=== PATIENT | male | born 1980 | race Caucasian/White ===

== ENCOUNTER 2022-01-11 09:30 | Emergency (ER) | payer OTHER, SELFPAY ==
--- NOTE | ~2022-01-11 | XR_ITS ---
EXAMINATION: XR HAND, LEFT CLINICAL INFORMATION: Puncture wound from screwdriver between first and second digit. COMPARISON: None TECHNIQUE: PA, lateral, and oblique views of the left hand. FINDINGS: Mild to moderate soft tissue swelling is seen in the region of the thenar eminence. A tiny osseous density seen along the proximal/radial aspect of the proximal phalanx of the first digit. The remainder the digits are intact. The carpal bones are normally aligned. The distal radius and ulna are intact. XR/XR hand LT min 3V IMPRESSION: 1. Mild to moderate soft tissue swelling in the thenar eminence without radiopaque foreign body in this region. 2. Tiny density along the proximal/radial aspect of the proximal phalanx of the first digit is nonspecific, but does not appear acute and could represent a radiopaque foreign body. Correlate with patient history and physical exam in this region.
[2022-01-11 09:43] VITALS: BP 157/94; PULSE 88; RESP 16; TEMP 35.9; O2SAT 98; BMI 39.5
[2022-01-11] MEDS: Diphth,Pertus(ACell),Tet Adult 0.5 ML SYRINGE IM (11:26)
[2022-01-11] MEDS: oxyCODONE HCl Immed Release 5 MG TABLET PO (11:26)
--- NOTE | 2022-01-11 12:06 | ED.WOUNDLAC ---
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 Related Data Previous Rx's Medication Instructions Recorded amoxicillin 875 mg-potassium 1 tab PO BID 10 Days #20 tab 01/11/22 clavulanate 125 mg tablet oxycodone-acetaminophen 5 mg-325 1 tab PO Q8H PRN #9 tab 01/11/22 mg tablet Allergies Allergy/AdvReac Type Severity Reaction Status Date / Time No Known Allergies Allergy Verified 01/11/22 09:46 [No Known Allergies*] Review of Systems Constitutional: Constitutional: Denies body ache(s), Denies chills, Denies fatigue, Denies fever(s), Denies headache(s), Denies malaise and Denies weakness Eyes: Eyes: Denies diplopia ENT: Denies vertigo, Denies dizziness, Denies otalgia, Denies headache(s), Denies mouth pain, Denies post nasal drip, Denies sinus pain, Denies sinus pressure, Denies sore throat and Denies throat swelling Cardiovascular: Cardiovascular: Denies chest pain, Denies syncope, Denies leg edema, Denies lightheadedness, Denies Loss of Consciousness, Denies palpitations and Denies dyspnea Respiratory: Respiratory: Denies chest congestion, Denies cough and Denies dyspnea Gastrointestinal: Gastrointestinal: Denies abdominal pain, Denies hematochezia, Denies constipation, Denies diarrhea and Denies vomiting Musculoskeletal: Musculoskeletal: Denies arthralgias, Denies joint swelling, Denies muscle weakness, Denies numbness, Denies stiffness and Denies tingling Integumentary/Breasts: Comments: Puncture wound to left hand Neurologic: Denies confusion, Denies vertigo, Denies dizziness, Denies syncope, Denies headache(s), Denies numbness, Denies tingling and Denies weakness Psychiatric: Psychiatric: Denies anxiety, Denies confusion and Denies depression Endocrine: Endocrine: Denies fatigue and Denies palpitations Allergic/Immunologic: Allergic/Immunologic: Denies throat swelling PMFSH Past Medical History Medical History No known health problems Social History Social History Advance Directives: No Advance Directives Information Provided: No Physical Exam Vital Signs: Vital Signs: Last Vital Signs Temp 96.7 F L 01/11/22 09:43 Pulse 88 01/11/22 09:43 Resp 16 01/11/22 09:43 BP 157/94 H 01/11/22 09:43 Pulse Ox 98 01/11/22 09:43 BMI result Body Mass Index 39.5 Const: General: No confusion Nutritional Appearance: well nourished Orientation/consciousness: No confusion Limitations: no limitations HEENT: Head: Yes normal to inspection, Yes normocephalic and Yes atraumatic Ears: hearing grossly normal bilaterally, external ears normal, TM's normal bilaterally and EAC's normal General nose exam: Normal external nose present Face and sinus: Yes normal facial exam and Yes sinuses nontender Mouth: Normal oral and palatal mucosa present Throat: Yes posterior oropharynx normal Eyes: Conjunctivae: conjunctivae normal Pupils: Equal, round and reactive pupils present EOM: EOMs intact bilaterally Neck: Neck: Yes full ROM, Yes no lymphadenopathy and Yes supple Resp: Effort & Inspection: normal respiratory effort and able to speak in complete sentences Auscultation: clear to auscultation bilaterally, no crackles, no rales, no rhonchi and no wheezes Cardio: Rate: regular rate Rhythm: regular rhythm Heart sounds: S1 normal heart sound present and S2 normal heart sound present GI: Inspection: Yes normal to inspection Palpation (GI): Soft to palpation, nontender, no guarding and not rigid Percussion: Yes normal to percussion Auscultation: normal bowel sounds Skin: Other: Puncture wound in webs which space between 1st and 2nd finger on left hand. Neuro: General: No confusion Cranial nerves: Yes Equal, round and reactive pupils present Extrem: General: Yes normal to inspection and Yes full ROM Psych: Appearance: grossly normal Affect: normal affect Attitude: cooperative Thought process: Normal thought process present Course Course Course Narrative: 41-year-old male presents for puncture wound to the webs weighs between his thumb and forefinger of his left hand that he sustained just prior to arrival. Patient's wound was irrigated copiously with 1 L of normal saline. Patient has intact left upper extremity pulses, sensation, telecommunication equipment repairer strength, range of motion. Patient has pain in his hand, x-ray shows old foreign body, nothing acute. Gave tetanus, will treat with Augmentin, gave short course pain medication, counseled salt water warm soaks. Counseled follow up with primary care provider. Gave return precautions of worsening pain, swelling, redness. Patient verbalized agreement and understanding of the plan. XR/XR hand LT min 3V IMPRESSION: 1. Mild to moderate soft tissue swelling in the thenar eminence without radiopaque foreign body in this region. 2. Tiny density along the proximal/radial aspect of the proximal phalanx of the first digit is nonspecific, but does not appear acute and could represent a radiopaque foreign body. Correlate with patient history and physical exam in this region. Discharge Plan Discharge Clinical Impression: Laceration Patient Disposition: Home, Self-Care Additional Instructions: Please soak your right hand in warm salt water 3 times a day for the next 3 days. Please do not put any antibiotic cream on your hand, we want to leave the wound open so it can drain. Please keep your hand clean and dry. Please fill the prescription for antibiotic and started today. I would like you to get 2 doses in mood today. If you have worsening hand swelling, redness, pain, please return to emergency room Prescriptions: New amoxicillin-pot clavulanate 875-125 mg tablet 1 tab PO BID 10 Days Qty: 20 0RF oxycodone-acetaminophen 5-325 mg tablet 1 tab PO Q8H PRN (Reason: pain) Qty: 9 0RF Stand Alone Forms: Work/School Release Interventions: ED Discharge Assessment Last Done: 01/11/22 12:19 Discharge Date/Time: 01/11/22 12:21
== END 2022-01-11 12:21 | disposition home or self-care (01) ==
PROVIDERS: Emergency Provider Emergency Medicine; PCP Internal Medicine
DX: S61.412A Laceration without foreign body of left hand, initial encounter (principal); W27.0XXA Contact with workbench tool, initial encounter; Y93.89 Activity, other specified; Y92.59 Other trade areas as the place of occurrence of the external cause; Y99.0 Civilian activity done for income or pay
CPT/HCPCS: 73130; 90471; 90715; 99284